=== PATIENT | male | born 1950 | race Caucasian/White ===

== ENCOUNTER 2021-05-20 11:10 | Observation (INO) ==
[2021-05-20] MEDS ORDERED: Ondansetron 4 MG/2 ML VIAL IVP PRN (16:09)
[2021-05-20] MEDS ORDERED: D5% in Water 1,000 ML IVC PRN (16:09)
[2021-05-20] MEDS ORDERED: Dextrose Gel 15 GM/37.5 ML TUBE PO PRN ×2 (16:09)
[2021-05-20] MEDS ORDERED: Naloxone 0.4 MG/ML INJ IVP PRN (16:09)
[2021-05-20] MEDS ORDERED: *HR* Dextrose 50 % in Water (Syg) 50 ML SYRINGE IVP PRN (16:09)
[2021-05-20] MEDS ORDERED: Acetaminophen 325 MG TABLET PO PRN (16:09)
[2021-05-20] MEDS ORDERED: Nitroglycerin 0.4 MG TAB.SUBL SL PRN (16:28)
[2021-05-20] MEDS ORDERED: Ipratropium/Albuterol Neb 3 ML IH PRN (16:29)
[2021-05-20] MEDS ORDERED: Perflutren Lipid Microsphere 1.3 ML in 0.9 % Sodium Chloride 8.7 ML IVP PRN (16:31)
[2021-05-20] MEDS: Insulin LISPRO 300 UNITS/3 ML VIAL SUBQ SCH (17:11)
[2021-05-20] MEDS ORDERED: *HR* Heparin 5,000 UNIT/ML VIAL IVP ONE (17:28)
[2021-05-20] MEDS ORDERED: *HR* Heparin 5,000 UNIT/ML VIAL IVP PRN ×2 (17:28)
[2021-05-20] MEDS ORDERED: Heparin 25,000UNIT/250ML 1/2NS 25,000 UNIT/250 ML IV.SOLN IVC SCH (17:30)
[2021-05-20] MEDS: Bumetanide 1 MG/4 ML VIAL IVP SCH (17:44)
[2021-05-20 17:55] LABS: INR 1.3; Prothrombin Time 14.7 Seconds (9.4-12.1)
[2021-05-20 18:02] LABS: Heparin anti-factor XA UFH 1.11 IU/mL (0.30-0.70)
[2021-05-20 19:40] LABS: Hematocrit 41.7 % (37.5-50.1); Hemoglobin 14.1 g/dL (12.9-16.9); Mean Corpuscular HGB Conc 33.8 g/dL (31.6-35.5); Mean Corpuscular Hemoglobin 31.7 pg (28.0-33.3); Mean Corpuscular Volume 93.7 fL (83.0-100.0); Mean Platelet Volume 10.9 fL (9.4-12.4); Platelet Count 211 K/mcL (140-400); Red Blood Count 4.45 M/mcL (4.19-5.50); Red Cell Distribution Width 12.8 % (11.5-14.5); White Blood Count 10.8 K/mcL (4.3-11.1)
[2021-05-21 00:34] LABS: Basophils # 0.1 K/mcL (0.0-0.2); Basophils % 0.8 %; Eosinophils # 0.4 K/mcL (0.0-0.6); Eosinophils % 2.9 %; Hematocrit 41.8 % (37.5-50.1); Hemoglobin 14.4 g/dL (12.9-16.9); Immature Granulocytes % 0.3 % (0-4); Lymphocytes # 3.2 K/mcL (0.6-4.6); Lymphocytes % 25.8 %; Mean Corpuscular HGB Conc 34.4 g/dL (31.6-35.5); Mean Corpuscular Volume 95.7 fL (83.0-100.0); Mean Platelet Volume 11.2 fL (9.4-12.4); Monocytes # 0.6 K/mcL (0.0-1.3); Monocytes % 5.1 %; Platelet Count 202 K/mcL (140-400); Red Blood Count 4.37 M/mcL (4.19-5.50); Red Cell Distribution Width 12.6 % (11.5-14.5); Segmented Neutrophils % 65.1 %; White Blood Count 12.2 K/mcL (4.3-11.1)
[2021-05-21 00:55] LABS: BUN/Creatinine Ratio 14 (6-26); Blood Urea Nitrogen 12 mg/dL (8-23); Calcium 9.3 mg/dL (8.6-10.3); Carbon Dioxide 27 mEq/L (23-29); Chloride 103 mEq/L (98-107); Glucose 109 mg/dL (70-105); Magnesium 1.3 mg/dL (1.6-2.6); Osmolality,Calculated 290 (280-300); Potassium 3.4 mEq/L (3.5-5.1); Sodium 140 mEq/L (136-145); eGFR For African Americans > 60 (> 60); eGFR For Non-African Americans > 60 (> 60)
[2021-05-21 00:59] LABS: Troponin I 0.14 ng/mL (< 0.04)
[2021-05-21 02:12] VITALS: BP 168/90; PULSE 86; TEMP 98.3; O2SAT 97
[2021-05-21] MEDS ORDERED: Potassium Chloride Elixir 20 MEQ/15 ML UDC PO ONE (07:24)
[2021-05-21] MEDS: lisinopriL 10 MG TABLET PO SCH ×2 (07:45→07:56)
[2021-05-21] MEDS: Bumetanide 1 MG/4 ML VIAL IVP SCH ×2 (07:46→07:56)
[2021-05-21] MEDS: Aspirin 81 MG TAB.CHEW PO SCH ×2 (07:46→07:56)
[2021-05-21] MEDS: Metoprolol XL (24 HR) Succ 50 MG TAB.ER.24H PO SCH ×2 (07:46→07:56)
[2021-05-21] MEDS: Insulin LISPRO 300 UNITS/3 ML VIAL SUBQ SCH (07:47)
[2021-05-21] MEDS ORDERED: Nicotine 7 MG PATCH.TD24 TD SCH (09:00)
== END 2021-05-21 09:16 | disposition left against medical advice (07) ==
LOC: 3ANU
PROVIDERS: ADMIT Pharmacist; ATTEND Pharmacist